=== PATIENT | female | born 1935 | race Caucasian/White ===

== ENCOUNTER 2018-03-15 11:07 | Emergency (ER) | payer MEDICARE, OTHER ==
[2018-03-15 12:06] VITALS: BP 144/74
[2018-03-15] MEDS ORDERED: predniSONE TAB* 20 MG PO ONE (12:55)
--- NOTE | 2018-03-15 13:04 | UC ---
Skin Complaint HPI - HPI Summary HPI Summary: States that she completed a course of amoxil uneventfully on 03-09-18 for a dental extraction and on that day had a slow release antibiotic implanted on the gum after which she started having a very itchy rash on legs which spread to thighs, forearms, face, neck and upper chest. Patient has benadryl and has taken several to no avail. She denies wheezing, SOB, cough, nausea or dysphagia - History of Current Complaint Chief Complaint: UCRash Time Seen by Provider: 03/15/18 12:35 Stated Complaint: RASH Hx Obtained From: Patient ?: Yes Onset/Duration: Sudden Onset, Lasting Days Skin Exposure Onset/Duration: Days Ago Onset Severity: Mild Current Severity: Severe Pain Intensity: 0 Location: Diffuse Character: Pruritus, Redness, Raised Alleviating Factor(s): Nothing Associated Signs & Symptoms: Positive: Negative Related History: Recent change in medication - Allergy/Home Medications Allergies/Adverse Reactions: Allergies Allergy/AdvReac Type Severity Reaction Status Date / Time Sulfa (Sulfonamide Allergy Unknown Verified 03/15/18 12:01 Antibiotics) Reaction Details Home Medications: Home Medications Aspirin [Aspir-Low] 1 tab PO DAILY 03/15/18 [History Confirmed 03/15/18] Review of Systems Constitutional: Negative Skin: Rash Eyes: Negative ENT: Negative Respiratory: Negative Cardiovascular: Negative Gastrointestinal: Negative All Other Systems Reviewed And Are Negative: Yes PMH/Surg Hx/FS Hx/Imm Hx Endocrine History: Hypothyroidism, Dyslipidemia Cardiovascular History: Hypertension - Surgical History Surgical History: Yes Surgery Procedure, Year, and Place: LUMPECTOMY. ABDOMINAL TUMOR BX. TUBAL LIGATION. TONSILECTOMY. CATARACTS NAOMI EYES - Family History Known Family History: Positive: Cardiac Disease - [place] (father), Other - Breast cancer (mother) - Social History Alcohol Use: Occasionally Alcohol Amount: 1 glass Substance Use Type: None Smoking Status (MU): Former Smoker Type: Cigarettes Amount Used/How Often: 1/2 ppd Length of Time of Smoking/Using Tobacco: 2 years Have You Smoked in the Last Year: No When Did the Patient Quit Smoking/Using Tobacco: 07/28/1955 Physical Exam Triage Information Reviewed: Yes Appearance: Well-Appearing, No Pain Distress, Well-Nourished Vital Signs: Initial Vital Signs Temp 98.7 F 03/15/18 11:58 Pulse 61 03/15/18 11:58 Resp 18 03/15/18 11:58 BP 144/74 03/15/18 11:58 Pulse Ox 100 03/15/18 11:58 Vital Signs Reviewed: Yes Eyes: Positive: Conjunctiva Clear ENT: Positive: Normal ENT inspection, Hearing grossly normal, Pharynx normal, TMs normal Neck: Positive: Supple, Nontender, No Lymphadenopathy Respiratory: Positive: Chest non-tender, Lungs clear, Normal breath sounds, No respiratory distress Cardiovascular: Positive: RRR, No Murmur, Pulses Normal, Brisk Capillary Refill Abdomen Description: Positive: Nontender, No Organomegaly, Soft, Bruit Neurological: Positive: Alert, Muscle Tone Normal Skin: Positive: rashes - papulo macular blanching erythematous rash on legs, collar area, upper chest, neck, face with areas on confluence. Course/Dx - Course Course Of Treatment: start prednisone. May continue benadryl along with ranitidine. Moisturize skin and f/u with PCP in 2 days. - Diagnoses Provider Diagnoses: allergic reaction to antibiotic Discharge - Sign-Out/Discharge Documenting (check all that apply): Patient Departure - Discharge Plan Condition: Good Disposition: HOME Prescriptions: predniSONE TAB* [Deltasone 20 MG TAB*] 40 mg PO DAILY 5 Days #10 tab Ranitidine TAB (NF) [Zantac TAB (NF)] 300 mg PO BEDTIME 14 Days #14 tab Patient Education Materials: Antibiotic Medication Allergy (ED), Prednisone ( By mouth), Ranitidine (By mouth) Referrals: Sukhdev Gardner MD [Primary Care Provider] - Additional Instructions: follow up with your doctor in 2 days - Billing Disposition and Condition Condition: GOOD Disposition: Home
== END 2018-03-15 13:15 | disposition home or self-care (01) ==
LOC: UCEAST 11:07
DX: L27.0 Generalized skin eruption due to drugs and medicaments taken internally (principal); T36.95XA Adverse effect of unspecified systemic antibiotic, initial encounter; Y92.89 Other specified places as the place of occurrence of the external cause; Z88.1 Allergy status to other antibiotic agents; Z87.891 Personal history of nicotine dependence
CPT/HCPCS: 99212; G0463; J7512